=== PATIENT | female | born 1980 | race Caucasian/White ===

== ENCOUNTER 2017-06-11 13:15 | Emergency (ER) | payer MEDICAID ==
--- NOTE | 2017-06-11 14:13 | ER Document Report ---
ED Medical Screen (RME) - General Chief Complaint: Dizziness Stated Complaint: DIZZINESS Time Seen by Provider: 06/11/17 14:04 Notes: RAPID MEDICAL EVALUATION DISCLOSURE I have seen this patient as part of a Rapid Medical Evaluation and, if applicable, placed any initially appropriate orders. The patient will be seen and fully evaluated, including a full history and physical exam, by a provider ( in Main ED or Fast Track) when a room becomes available. 37-year-old female approximately 3-4 months (per patient calculated by her last menstrual period back around March) here with complaints of left lower quadrant abdominal pain for the last 2 weeks, intermittent, nonradiating, worse with movement but is here today because she started to have lightheadedness yesterday evening that is progressively worsening. The lightheadedness is worse with standing. She has had some nausea but no vomiting throughout her . She has had some vaginal discharge that is worse today but no vaginal bleeding. EXAM Clear to auscultation bilaterally Regular rate and rhythm Mild left lower quadrant tenderness to palpation TRAVEL OUTSIDE OF THE [place] IN LAST 30 DAYS: No - Related Data Allergies/Adverse Reactions: No Known Allergies Allergy (Verified 06/11/17 13:56) Past Medical History - Social History Chew tobacco use (# tins/day): No Frequency of alcohol use: None Drug Abuse: None Renal/ Medical History: Denies: Hx Peritoneal Dialysis - Immunizations Hx Diphtheria, Pertussis, Tetanus Vaccination: Yes Physical Exam - Vital signs Vitals: Temp Pulse Resp BP Pulse Ox 98.7 F 89 18 120/72 98 06/11/17 13:29 06/11/17 13:29 06/11/17 13:06/11/17 13:06/11/17 13:29 Course - Vital Signs Vital signs: Temp Pulse Resp BP Pulse Ox 98.7 F 89 18 120/72 98 06/11/17 13:29 06/11/17 13:29 06/11/17 13:29 06/11/17 13:29 06/11/17 13:29 Doctor's Discharge - Discharge Referrals: TIFFANI MURPHY MD [Primary Care Provider] - Follow up as needed
[2017-06-11 14:51] LABS: ABSOLUTE LYMPHOCYTES (AUTO) 2.2 10^3/uL (0.5-4.7); ABSOLUTE MONOCYTES (AUTO) 0.3 10^3/uL (0.1-1.4); ABSOLUTE NEUT (AUTO) 9.2 10^3/uL (1.7-8.2); BASOPHILS % (AUTO) 0.3 % (0-2); EOSINOPHILS % (AUTO) 0.2 % (0-6); HEMATOCRIT 39.3 % (36.0-47.0); HEMOGLOBIN 13.4 g/dL (12.0-15.5); LYMPHOCYTES % (AUTO) 18.3 % (13-45); MEAN CORPUSCULAR HEMOGLOBIN 29.8 pg (27.0-33.4); MEAN CORPUSCULAR HGB CONC 34.2 g/dL (32.0-36.0); MEAN CORPUSCULAR VOLUME 87 fl (80-97); MONOCYTES % (AUTO) 2.9 % (3-13); PLATELET COUNT 256 10^3/uL (150-450); RED BLOOD COUNT 4.52 10^6/uL (3.72-5.28); RED CELL DISTRIBUTION WIDTH 14.7 % (11.5-14.0); SEGMENTED NEUTROPHILS % (AUTO) 78.3 % (42-78); TOTAL CELLS COUNTED % (AUTO) 100 %; WHITE BLOOD COUNT 11.7 10^3/uL (4.0-10.5)
[2017-06-11 15:18] LABS: ANION GAP 13 (5-19); BLOOD UREA NITROGEN 5 mg/dL (7-20); CALCIUM 9.5 mg/dL (8.4-10.2); CARBON DIOXIDE 26 mmol/L (22-30); CHLORIDE 103 mmol/L (98-107); GLUCOSE 85 mg/dL (75-110); PHOSPHORUS 4.2 mg/dL (2.5-4.5); POTASSIUM 3.9 mmol/L (3.6-5.0); SODIUM 141.5 mmol/L (137-145)
[2017-06-11 15:45] LABS: APPEARANCE,URINE CLEAR; BILIRUBIN,URINE NEGATIVE (NEGATIVE); COLOR,URINE YELLOW; GLUCOSE, URINE NEGATIVE (NEGATIVE); KETONES,URINE NEGATIVE (NEGATIVE); LEUKOCYTE ESTERASE,URINE TRACE (NEGATIVE); NITRITE,URINE NEGATIVE (NEGATIVE); PROTEIN,URINE NEGATIVE (NEGATIVE); UROBILINOGEN,URINE NEGATIVE mg/dL (<2.0)
--- NOTE | 2017-06-11 17:17 | RADIOLOGY REPORT (SQ) ---
EXAM DESCRIPTION: U/S OB TRANSVAGINAL W/O DOP COMPLETED DATE/TIME: 06/11/2017 4:28 pm REASON FOR STUDY: 3-4 months preg; LLQ pain; eval miscarriage ectopi COMPARISON: None. TECHNIQUE: Transabdominal static and realtime grayscale images acquired of the pelvis. Additional se lected spectral and color Doppler images recorded. All images stored on PACs. [facility] CLINICAL DATES: 01/05/2018 LIMITATIONS: None. FINDINGS: FETUS: Living intrauterine . ULTRASOUND EGA: 12 weeks ULTRASOUND FELISA: 12/24/2017 CRL: Not evaluated FHR: 144 beats per minute. SUBCHORIONIC BLEED: No SIZE OF BLEED: Not applicable. UTERUS: No masses. No anomalies. CERVICAL LENGTH: 3 cm Closed. RIGHT ADNEXA: Normal ovary with normal vascular flow. No adnexal free fluid. There is a questionable right ovarian cyst measuring 2.6 x 2.7 x 2.7 cm LEFT ADNEXA: Left ovary was not visualized. No adnexal free fluid. No adnexal masses. FREE FLUID: None. OTHER: No other significant finding. IMPRESSION: LIVING INTRAUTERINE . EGA 12 weeks Trimester of : First - 0 to 13 weeks. TECHNICAL DOCUMENTATION: JOB ID: [id number] [employer]- All Rights Reserved Reading location - IP/workstation name: [email or web address]
[2017-06-11 17:23] VITALS: BP 131/76
--- NOTE | 2017-06-11 17:34 | ER Document Report ---
ED General - General Chief Complaint: Dizziness Stated Complaint: DIZZINESS Time Seen by Provider: 06/11/17 14:04 TRAVEL OUTSIDE OF THE [place] IN LAST 30 DAYS: No - Related Data Allergies/Adverse Reactions: No Known Allergies Allergy (Verified 06/11/17 13:56) Past Medical History - Social History Smoking Status: Former Smoker Chew tobacco use (# tins/day): No Frequency of alcohol use: None Drug Abuse: None Family History: Reviewed & Not Pertinent Patient has suicidal ideation: No Patient has homicidal ideation: No Renal/ Medical History: Denies: Hx Peritoneal Dialysis - Immunizations Hx Diphtheria, Pertussis, Tetanus Vaccination: Yes Physical Exam - Vital signs Vitals: Temp Pulse Resp BP Pulse Ox 98.7 F 89 18 120/72 98 06/11/17 13:29 06/11/17 13:29 06/11/17 13:29 06/11/17 13:29 06/11/17 13:29 Course - Vital Signs Vital signs: Temp Pulse Resp BP Pulse Ox 98.2 F 89 18 131/76 H 100 06/11/17 17:22 06/11/17 17:22 06/11/17 17:22 06/11/17 17:22 06/11/17 17:22 - Laboratory Result Diagrams: 06/11/17 14:30 06/11/17 14:30 Laboratory results interpreted by me: 06/11/17 06/11/17 06/11/17 14:30 14:30 15:20 WBC 11.7 H RDW 14.7 H Seg Neutrophils % 78.3 H Monocytes % 2.9 L Absolute Neutrophils 9.2 H BUN 5 L Creatinine 0.41 L Beta HCG, Quant 87966.00 H Ur Leukocyte Esterase TRACE H Discharge - Discharge Clinical Impression: Dizziness Abdominal pain during Qualifiers: Trimester: first trimester Qualified Code(s): O26.891 - Other specified related conditions, first trimester; R10.9 - Unspecified abdominal pain; R10.9 - Unspecified abdominal pain Condition: Good Disposition: HOME, SELF-CARE Instructions: Dehydration ([facility]), Dizziness ([facility]), Pelvic Pain in and Round Ligament Pain ([facility]), Ob-Scale Balancer Doctors Additional Instructions: For nausea and vomiting during I recomment: Start with 10-12.5 mg of pyridoxine (vitamin B6) three times a day for 2 days. If not fully effective, Increase to 12.5 mg of pyridoxine four times a day for 2 days. If not fully effective, Increase to 25 mg of pyridoxine three times a day for 2 days. If not fully effective, Continue 25 mg pyridoxine 3 times a day, and add 12.5 mg of doxylamine before bedtime each day for 2 days. If not fully effective, Continue 25 mg pyridoxine 3 times a day, and take 12.5 mg of doxylamine twice a day. If not fully effective, Continue 25 mg pyridoxine 3 times a day, and take 12.5 mg of doxylamine three times a day. If not fully effective, Continue 25 mg pyridoxine 3 times a day, and 12.5 mg of doxylamine 3 times a day , while adding Emetrol, one to two tablespoons (15-30 cc) taken once or twice a day as needed. (Emetrol is an [id number] mixture of sugar syrups and phosphoric acid [phosphorylated carbohydrate solution]) that acts by soothing the actual wall of the gastrointestinal tract). If not fully effective, Consult with your doctor. Please take vitamins. Follow-up with your LIME FILTER OPERATOR I believe that her dizziness today is due mostly to dehydration. I would highly recommend that you continue to drink plenty of fluids to stay hydrated. Take vitamins as prescribed. Return to the ER if symptoms worsen. Prescriptions: Metoclopramide HCl [Reglan] 5 mg PO Q6 #30 tablet Prenat 115/Iron Fum/Folic/Dss [ 19 Tablet] 1 each PO DAILY #30 tablet Referrals: TIFFANI MURPHY MD [Primary Care Provider] - Follow up as needed
--- NOTE | 2017-06-11 19:09 | ER Document Report ---
ED General - General Chief Complaint: Dizziness Stated Complaint: DIZZINESS Time Seen by Provider: 06/11/17 14:04 TRAVEL OUTSIDE OF THE [place] IN LAST 30 DAYS: No - HPI Patient complains to provider of: Dizziness Notes: Patient coming in for evaluation of dizziness. Patient is currently . Patient is approximate 3-4 months by her last menstrual cycle. Patient is a . Patient states dizziness exacerbated with movement sitting from standing. Patient also in triage is noted to triage provider that she had slight vaginal discharge. Patient states to myself that this is not abnormal for her and does not want any further examination. Patient denies any recent travel denies any fevers chills nausea vomiting diarrhea. Patient is currently upon my evaluation. Patient also states slight abdominal pain left lower quadrant. No diarrhea pain is constant. No trauma - Related Data Allergies/Adverse Reactions: No Known Allergies Allergy (Verified 06/11/17 13:56) Past Medical History - Social History Smoking Status: Former Smoker Chew tobacco use (# tins/day): No Frequency of alcohol use: None Drug Abuse: None Family History: Reviewed & Not Pertinent Patient has suicidal ideation: No Patient has homicidal ideation: No Renal/ Medical History: Denies: Hx Peritoneal Dialysis - Immunizations Hx Diphtheria, Pertussis, Tetanus Vaccination: Yes Review of Systems - Review of Systems Constitutional: Other - Dizziness EENT: No symptoms reported Cardiovascular: No symptoms reported Respiratory: No symptoms reported Gastrointestinal: No symptoms reported Genitourinary: No symptoms reported Female Genitourinary: No symptoms reported Musculoskeletal: No symptoms reported Skin: No symptoms reported Hematologic/Lymphatic: No symptoms reported Neurological/Psychological: No symptoms reported Physical Exam - Vital signs Vitals: Temp Pulse Resp BP Pulse Ox 98.7 F 89 18 120/72 98 06/11/17 13:29 06/11/17 13:29 06/11/17 13:29 06/11/17 13:29 06/11/17 13:29 Interpretation: Normal - General General appearance: Appears well, Alert - HEENT Head: Normocephalic, Atraumatic Eyes: Normal Pupils: PERRL - Respiratory Respiratory status: No respiratory distress Chest status: Nontender Breath sounds: Normal Chest palpation: Normal - Cardiovascular Rhythm: Regular Heart sounds: Normal auscultation Murmur: No - Abdominal Inspection: Normal Distension: No distension Bowel sounds: Normal Tenderness: Nontender Organomegaly: No organomegaly - Back Back: Normal, Nontender - Extremities General upper extremity: Normal inspection, Nontender, Normal color, Normal ROM , Normal temperature General lower extremity: Normal inspection, Nontender, Normal color, Normal ROM , Normal temperature, Normal weight bearing. No: Ruben's sign - Neurological Neuro grossly intact: Yes Cognition: Normal Orientation: AAOx4 [place] Coma Scale Eye Opening: Spontaneous [place] Coma Scale Verbal: Oriented [place] Coma Scale Motor: Obeys Commands [place] Coma Scale Total: 15 Speech: Normal Motor strength normal: LUE, RUE, LLE, RLE Sensory: Normal - Psychological Associated symptoms: Normal affect, Normal mood - Skin Skin Temperature: Warm Skin Moisture: Dry Skin Color: Normal Course - Re-evaluation Re-evalutation: 06/11/17 19:08 Ultrasound did not show any significant pathology. More likely patient's abdominal pain is due to round ligament pain. Patient refusing pelvic examination. I did review the ultrasound results with the patient otherwise no significant pathology seen. Dizziness more likely due to slight orthostasis patient was encouraged to drink plenty of fluids patient was given a prescription for vitamins and Reglan. Patient will be discharged home follow-up primary care physician. - Vital Signs Vital signs: Temp Pulse Resp BP Pulse Ox 98.2 F 89 18 131/76 H 100 06/11/17 17:22 06/11/17 17:22 06/11/17 17:22 06/11/17 17:22 06/11/17 17:22 - Laboratory Result Diagrams: 06/11/17 14:30 06/11/17 14:30 Laboratory results interpreted by me: 06/11/17 06/11/17 06/11/17 14:30 14:30 15:20 WBC 11.7 H RDW 14.7 H Seg Neutrophils % 78.3 H Monocytes % 2.9 L Absolute Neutrophils 9.2 H BUN 5 L Creatinine 0.41 L Beta HCG, Quant 94316.00 H Ur Leukocyte Esterase TRACE H Discharge - Discharge Clinical Impression: Dizziness Abdominal pain during Qualifiers: Trimester: first trimester Qualified Code(s): O26.891 - Other specified related conditions, first trimester Condition: Good Disposition: HOME, SELF-CARE Instructions: Dehydration ([facility]), Dizziness ([facility]), Ob-Bottle Washer Machine Doctors, Pelvic Pain in and Round Ligament Pain ([facility]) Additional Instructions: For nausea and vomiting during I recomment: Start with 10-12.5 mg of pyridoxine (vitamin B6) three times a day for 2 days. If not fully effective, Increase to 12.5 mg of pyridoxine four times a day for 2 days. If not fully effective, Increase to 25 mg of pyridoxine three times a day for 2 days. If not fully effective, Continue 25 mg pyridoxine 3 times a day, and add 12.5 mg of doxylamine before bedtime each day for 2 days. If not fully effective, Continue 25 mg pyridoxine 3 times a day, and take 12.5 mg of doxylamine twice a day. If not fully effective, Continue 25 mg pyridoxine 3 times a day, and take 12.5 mg of doxylamine three times a day. If not fully effective, Continue 25 mg pyridoxine 3 times a day, and 12.5 mg of doxylamine 3 times a day , while adding Emetrol, one to two tablespoons (15-30 cc) taken once or twice a day as needed. (Emetrol is an tpct-anr-brrwexi mixture of sugar syrups and phosphoric acid [phosphorylated carbohydrate solution]) that acts by soothing the actual wall of the gastrointestinal tract). If not fully effective, Consult with your doctor. Please take vitamins. Follow-up with your ADMINISTRATOR PESTICIDE I believe that her dizziness today is due mostly to dehydration. I would highly recommend that you continue to drink plenty of fluids to stay hydrated. Take vitamins as prescribed. Return to the ER if symptoms worsen. Prescriptions: Metoclopramide HCl [Reglan] 5 mg PO Q6 #30 tablet Prenat 115/Iron Fum/Folic/Dss [ 19 Tablet] 1 each PO DAILY #30 tablet Forms: Return to Work Referrals: TIFFANI MURPHY MD [Primary Care Provider] - Follow up as needed
== END 2017-06-11 17:37 | disposition home or self-care (01) ==
LOC: ER 13:15
DX: O26.91 Pregnancy related conditions, unspecified, first trimester (principal); R42 Dizziness and giddiness; R10.2 Pelvic and perineal pain
CPT/HCPCS: 36415; 76817; 80048; 81001; 83735; 84100; 84702; 85025; 86900; 86901; 99284

== ENCOUNTER 2017-07-31 15:31 | Emergency (ER) | payer MEDICAID ==
[2017-07-31 16:14] LABS: APPEARANCE,URINE CLEAR; BILIRUBIN,URINE NEGATIVE (NEGATIVE); COLOR,URINE YELLOW; GLUCOSE, URINE NEGATIVE (NEGATIVE); KETONES,URINE NEGATIVE (NEGATIVE); LEUKOCYTE ESTERASE,URINE NEGATIVE (NEGATIVE); NITRITE,URINE NEGATIVE (NEGATIVE); PROTEIN,URINE NEGATIVE (NEGATIVE); URINE SPECIFIC GRAVITY 1.008; UROBILINOGEN,URINE NEGATIVE mg/dL (<2.0)
--- NOTE | 2017-07-31 16:50 | ER Document Report ---
ED Medical Screen (RME) - General Chief Complaint: Vaginal Discharge Stated Complaint: VAGINAL DISCHARGE <20 WEEKS Time Seen by Provider: 07/31/17 15:58 Mode of Arrival: Ambulatory Information source: Patient Notes: 37-year-old female 6 para 6 who notes she is 20 weeks presents with what she states is brown vaginal discharge only when she urinates. Patient denies any significant abdominal pain fevers or chills I have greeted and performed a rapid initial assessment of this patient. A comprehensive ED assessment and evaluation of the patient, analysis of test results and completion of the medical decision making process will be conducted by additional ED providers. PHYSICAL EXAMINATION: GENERAL: Well-appearing, well-nourished and in no acute distress. HEAD: Atraumatic, normocephalic. EYES: Pupils equal round extraocular movements intact, conjunctiva are normal. ENT: Nares patent NECK: Normal range of motion LUNGS: No respiratory distress Musculoskeletal: Normal range of motion NEUROLOGICAL: Normal speech, normal gait. PSYCH: Normal mood, normal affect. SKIN: Warm, Dry, normal turgor, no rashes or lesions noted. TRAVEL OUTSIDE OF THE [place] IN LAST 30 DAYS: No - Related Data Allergies/Adverse Reactions: No Known Allergies Allergy (Verified 07/31/17 16:36) Past Medical History - General Last Menstrual Period: 20 wk pg - Social History Chew tobacco use (# tins/day): No Frequency of alcohol use: None Drug Abuse: None Renal/ Medical History: Denies: Hx Peritoneal Dialysis - Immunizations Hx Diphtheria, Pertussis, Tetanus Vaccination: Yes Physical Exam - Vital signs Vitals: Temp Pulse Resp BP Pulse Ox 98.9 F 94 16 131/75 H 98 07/31/17 15:36 07/31/17 15:36 07/31/17 15:36 07/31/17 15:36 07/31/17 15:36 Course - Vital Signs Vital signs: Temp Pulse Resp BP Pulse Ox 98.9 F 94 16 131/75 H 98 07/31/17 15:36 07/31/17 15:36 07/31/17 15:36 07/31/17 15:36 07/31/17 15:36 Doctor's Discharge - Discharge Referrals: TIFFANI MURPHY MD [Primary Care Provider] - Follow up as needed
--- NOTE | 2017-07-31 17:13 | ER Document Report ---
ED GI/ - General Chief Complaint: Vaginal Discharge Stated Complaint: VAGINAL DISCHARGE <20 WEEKS Time Seen by Provider: 07/31/17 15:58 Mode of Arrival: Ambulatory Notes: The patient is a 20 weeks 37-year-old who presents with a small amount of blood when she urinates and brown discharge. He was also having sharp lower abdominal pain, but denies fevers, flank pain, nausea, vomiting or heavy vaginal bleeding. TRAVEL OUTSIDE OF THE [place] IN LAST 30 DAYS: No - Related Data Allergies/Adverse Reactions: No Known Allergies Allergy (Verified 07/31/17 16:36) Past Medical History - General Information source: Patient Last Menstrual Period: 20 wk pg - Social History Smoking Status: Former Smoker Chew tobacco use (# tins/day): No Frequency of alcohol use: None Drug Abuse: None Family History: Reviewed & Not Pertinent Patient has suicidal ideation: No Patient has homicidal ideation: No Renal/ Medical History: Denies: Hx Peritoneal Dialysis - Immunizations Hx Diphtheria, Pertussis, Tetanus Vaccination: Yes Review of Systems - Review of Systems Notes: REVIEW OF SYSTEMS: CONSTITUTIONAL: -fevers, -chills EENT: -eye pain, -difficulty swallowing, -nasal congestion CARDIOVASCULAR: -chest pain, -syncope. RESPIRATORY: -cough, -SOB GASTROINTESTINAL: -abdominal pain, -nausea, -vomiting, -diarrhea GENITOURINARY: -dysuria, -hematuria, +vaginal discharge MUSCULOSKELETAL: -back pain, -neck pain SKIN: -rash or skin lesions. HEMATOLOGIC: -easy bruising or bleeding. LYMPHATIC: -swollen, enlarged glands. NEUROLOGICAL: -altered mental status or loss of consciousness, -headache, - neurologic symptoms PSYCHIATRIC: -anxiety, -depression. ALL OTHER SYSTEMS REVIEWED AND NEGATIVE. Physical Exam - Vital signs Vitals: Temp Pulse Resp BP Pulse Ox 98.9 F 94 16 131/75 H 98 07/31/17 15:36 07/31/17 15:36 07/31/17 15:36 07/31/17 15:36 07/31/17 15:36 - Notes Notes: PHYSICAL EXAMINATION: GENERAL: Well-appearing, well-nourished and in no acute distress. HEAD: Atraumatic, normocephalic. EYES: Pupils equal round and reactive to light, extraocular movements intact, sclera anicteric, conjunctiva are normal. ENT: nares patent, oropharynx clear without exudates. Moist mucous membranes. NECK: Normal range of motion, supple without lymphadenopathy LUNGS: Breath sounds clear to auscultation bilaterally and equal. No wheezes rales or rhonchi. HEART: Regular rate and rhythm without murmurs ABDOMEN: Soft, nontender, normoactive bowel sounds. No guarding, no rebound. No masses appreciated. (Chaperoned by PCT): Small amount of yellow discharge. Closed cervix. No bleeding. Non-tender abdomen and non-tender adnexa. EXTREMITIES: Normal range of motion, no pitting or edema. No cyanosis. NEUROLOGICAL: Cranial nerves grossly intact. Normal speech, normal gait. Normal sensory and motor exams. PSYCH: Normal mood, normal affect. SKIN: Warm, Dry, normal turgor, no rashes or lesions noted. Course - Re-evaluation Re-evalutation: Patient appears well. Her ultrasound shows a normal fetus and pelvic exam reveals a non-tender uterus with a closed cervix and a small amount of yellow discharge. Her urinalysis does not show any evidence of a urinary tract infection, gonorrhea and Chlamydia are both negative and her wet mount did not show any abnormalities. No active vaginal bleeding on exam. Instructed her to follow-up with her OB for further evaluation and treatment. - Vital Signs Vital signs: Temp Pulse Resp BP Pulse Ox 98.7 F 80 17 109/61 99 07/31/17 19:17 07/31/17 19:17 07/31/17 19:17 07/31/17 19:17 07/31/17 19:17 Discharge - Discharge Clinical Impression: Vaginal discharge during in second trimester Condition: Stable Disposition: HOME, SELF-CARE Additional Instructions: Follow-up with your OB for further evaluation and treatment. Your urinalysis and exam did not show any evidence of bleeding or infection. Forms: Elevated Blood Pressure Referrals: TIFFANI MURPHY MD [Primary Care Provider] - Follow up as needed
[2017-07-31 17:44] LABS: CHLAM PCR NOT DETECTED (NOT DETECT); GON PCR NOT DETECTED (NOT DETECT)
--- NOTE | 2017-07-31 17:51 | RADIOLOGY REPORT (SQ) ---
EXAM DESCRIPTION: U/S OB 14+ TRNABD 1GES W/O DOP COMPLETED DATE/TIME: 07/31/2017 5:40 pm REASON FOR STUDY: 20 weeks COMPARISON: 06/11/2017. TECHNIQUE: Static and Dynamic grayscale imaging performed of gravid uterus using transabdominal appr oach. Additional selected color Doppler and spectral images recorded. All stored on PACS. LIMITATIONS: None. FINDINGS: EGA: 19 week 0 day. FELISA: 12/25/2017. EFW: 270 Grams PERCENTILE: Not applicable. Fetus less than or equal to 20 weeks gestation. HEIDY: Adequate amount. PLACENTA: Anterior. Grade: I PRESENTATION: Breech. ANATOMY: HEART RATE: 141 beats per minute. FOUR CHAMBER HEART: Visualized. THREE VESSEL CORD: Yes. CORD INSERTION: Visualized. KIDNEYS AND BLADDER: Visualized. Appear normal. STOMACH: Visualized. Appears normal. SPINE: Normal as visualized. BRAIN AND LATERAL VENTRICLES: Visualized. Appear normal. OTHER: No other significant finding. MATERNAL ADNEXA: Maternal ovaries not visualized. CERVICAL LENGTH: 3.8 cm. Closed. OTHER: No other significant finding. IMPRESSION: LIVING INTRAUTERINE . ESTIMATED GESTATIONAL AGE 19 WEEKS. NO VISUALIZED ANOMALIES. Trimester of : Second trimester - 13 weeks 1 day to 27 weeks 6 days. TECHNICAL DOCUMENTATION: JOB ID: [id number] [employer]- All Rights Reserved Reading location - IP/workstation name: [email or web address]
[2017-07-31 18:47] LABS: T.VAGINALIS (WET MOUNT) NO TRICHOMONAS SEEN; WBCS (WET MOUNT) NO WBCS SEEN; YEAST (WET MOUNT) NO YEAST SEEN
[2017-07-31 19:18] VITALS: BP 109/61
== END 2017-07-31 19:18 | disposition home or self-care (01) ==
LOC: ER 15:31
DX: O26.892 Other specified pregnancy related conditions, second trimester (principal); N89.8 Other specified noninflammatory disorders of vagina; R10.30 Lower abdominal pain, unspecified; Z3A.20 20 weeks gestation of pregnancy; Z87.891 Personal history of nicotine dependence
CPT/HCPCS: 76805; 81001; 87210; 87491; 87591; 99284

== ENCOUNTER 2017-11-10 15:57 | Outpatient (CLI) | payer MEDICAID ==
--- NOTE | 2017-11-10 16:50 | Non Stress Test Report ---
Non Stress Test Datetime Report Generated by CPN: 11/10/2017 16:49 DEMOGRAPHIC EGA NST: 33.6 INDICATION Indication for Study: Ordered by Provider; Other Indication for Study (NST) Other: polyhydramnious MONITORING Monitor Explained: Monitor Explained; Test Explained; Patient Verbalized Understanding Time on Monitor: 11/10/2017 16:11 Time off Monitor: 11/10/2017 16:36 NST Duration: 25 NST INTERVENTIONS NST Interventions: PO Hydration; Reposition Patient Physician Notified NST: N ARCEO, CNM BABY A: [id number] BABY A Movement : Present Contraction Frequency : denies FHR Baseline : 125 Accelerations : 15X15 Decelerations : None Variability : Moderate 6-25bpm NST Review: Meets Criteria for Reactive NST NST Review and Verified By : LENORA DEAN Results: Reactive NST REPORT Report Trigger: Send Report
== END 2017-11-10 16:42 | disposition home or self-care (01) ==
LOC: LC 15:57
PROVIDERS: ATTEND Obstetrics & Gynecology
PROC: 4A1HXCZ Monitoring of Products of Conception, Cardiac Rate, External Approach (ICD-10-PCS; principal; 2017-11-10)
DX: O40.3XX0 Polyhydramnios, third trimester, not applicable or unspecified (principal); O09.523 Supervision of elderly multigravida, third trimester; Z3A.33 33 weeks gestation of pregnancy
CPT/HCPCS: 59025

== ENCOUNTER 2017-11-20 15:31 | Outpatient (CLI) | payer MEDICAID ==
--- NOTE | 2017-11-20 17:05 | Non Stress Test Report ---
Non Stress Test Datetime Report Generated by CPN: 11/20/2017 17:04 DEMOGRAPHIC EGA NST: 35.2 INDICATION Indication for Study: Ordered by Provider Indication for Study (NST) Other: sent from the office MONITORING Monitor Explained: Monitor Explained; Test Explained; Patient Verbalized Understanding Time on Monitor: 11/20/2017 15:50 Time off Monitor: 11/20/2017 16:34 NST Duration: 44 NST INTERVENTIONS NST Interventions: PO Hydration; Reposition Patient Physician Notified NST: Dr Weiner BABY A: [id number] BABY A Movement : Present Contraction Frequency : irr FHR Baseline : 130 Accelerations : 15X15 Decelerations : None Variability : Moderate 6-25bpm NST Review: Meets Criteria for Reactive NST NST Review and Verified By : Mayte COOLEY NST Results: Reactive NST REPORT Report Trigger: Send Report
== END 2017-11-20 17:10 | disposition home or self-care (01) ==
LOC: LC 15:31
PROVIDERS: ATTEND Student in an Organized Health Care Education/Training Program
PROC: 4A1HXCZ Monitoring of Products of Conception, Cardiac Rate, External Approach (ICD-10-PCS; principal; 2017-11-20)
DX: Z34.83 Encounter for supervision of other normal pregnancy, third trimester (principal)
CPT/HCPCS: 59025

== ENCOUNTER 2017-12-04 14:59 | Outpatient (CLI) | payer MEDICAID | END 2017-12-04 15:52 | disposition home or self-care (01) | LOC: LC 14:59 | PROVIDERS: ATTEND Obstetrics & Gynecology Gynecology | PROC: 4A1HXCZ Monitoring of Products of Conception, Cardiac Rate, External Approach (ICD-10-PCS; principal; 2017-12-04) | DX: Z34.93 Encounter for supervision of normal pregnancy, unspecified, third trimester (principal) | CPT/HCPCS: 59025 ==

== ENCOUNTER 2017-12-18 06:59 | Inpatient (IN) | payer MEDICAID ==
[2017-12-18] MEDS ORDERED: RINGERS SOLUTION,LACTATED 300 ML IV ONE (07:31)
[2017-12-18] MEDS: RINGERS SOLUTION,LACTATED 1,000 ML IV PRN (08:21)
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
[2017-12-18 08:35] LABS: APPEARANCE,URINE SLIGHTLY-CLOUDY; BILIRUBIN,URINE NEGATIVE (NEGATIVE); COLOR,URINE YELLOW; GLUCOSE, URINE NEGATIVE (NEGATIVE); KETONES,URINE NEGATIVE (NEGATIVE); LEUKOCYTE ESTERASE,URINE NEGATIVE (NEGATIVE); NITRITE,URINE NEGATIVE (NEGATIVE); PROTEIN,URINE NEGATIVE (NEGATIVE); UROBILINOGEN,URINE NEGATIVE mg/dL (<2.0)
[2017-12-18] MEDS ORDERED: MAG HYDROX/AL HYDROX/SIMETH SUSP 30 ML UDCUP ONE (08:43)
[2017-12-18] MEDS ORDERED: OXYTOCIN/NORMAL SALINE 20 UNIT/1,000 ML RTUINJ ONE (08:44)
[2017-12-18 08:45] LABS: ABSOLUTE EOSINOPHILS # (AUTO) 0.1 10^3/uL (0.0-0.6); ABSOLUTE LYMPHOCYTES (AUTO) 2.1 10^3/uL (0.5-4.7); ABSOLUTE MONOCYTES (AUTO) 0.4 10^3/uL (0.1-1.4); ABSOLUTE NEUT (AUTO) 7.8 10^3/uL (1.7-8.2); BASOPHILS % (AUTO) 0.2 % (0-2); EOSINOPHILS % (AUTO) 0.7 % (0-6); HEMATOCRIT 35.7 % (36.0-47.0); HEMOGLOBIN 12.3 g/dL (12.0-15.5); LYMPHOCYTES % (AUTO) 20.5 % (13-45); MEAN CORPUSCULAR HEMOGLOBIN 28.6 pg (27.0-33.4); MEAN CORPUSCULAR HGB CONC 34.4 g/dL (32.0-36.0); MEAN CORPUSCULAR VOLUME 83 fl (80-97); MONOCYTES % (AUTO) 4.3 % (3-13); PLATELET COUNT 152 10^3/uL (150-450); RED CELL DISTRIBUTION WIDTH 17.2 % (11.5-14.0); SEGMENTED NEUTROPHILS % (AUTO) 74.3 % (42-78); TOTAL CELLS COUNTED % (AUTO) 100 %; WHITE BLOOD COUNT 10.4 10^3/uL (4.0-10.5)
[2017-12-18 09:33] LABS: URINE AMPHETAMINES SCREEN NEGATIVE; URINE BARBITURATES SCREEN NEGATIVE; URINE BENZODIAZEPINES SCREEN NEGATIVE; URINE COCAINE SCREEN NEGATIVE; URINE MARIJUANA (THC) SCREEN NEGATIVE; URINE METHADONE SCREEN NEGATIVE; URINE PHENCYCLIDINE SCREEN NEGATIVE
[2017-12-18] MEDS ORDERED: OXYTOCIN/NORMAL SALINE 20 UNIT/1,000 ML RTUINJ IV PRN (09:55)
[2017-12-18] MEDS ORDERED: MAG HYDROX/AL HYDROX/SIMETH SUSP 30 ML UDCUP PO ONE (10:30)
--- NOTE | 2017-12-18 15:33 | L&D Progress Notes ---
PROGRESS NOTES Datetime Report Generated by CPN: 12/18/2017 15:33 PROGRESS NOTE Impression: Reassuring Heart Rate Procedures- Other: IOL for unstable lie and polyhydramnios Plan: Continue Present Management Plan Other: Pitocin infusing Vital Signs : Reviewed; Within Normal Limits Comment: Pt remains comfortable, Pitocin infusing, Dr Weiner plans to AROM and leak pt down once some cervical change is made. Position changes encouraged. GBS negative VAGINAL EXAM Contractions: occassional, mild MEMBRANES Membranes: Intact Membranes: Intact FETUS A FHR - Baseline: 125 Monitoring: External US Variability: Moderate 6-25bpm Accelerations: Absent Decelerations: None SIGNATURE SIGNATURE: ,[id number];,[id number];,[id number] SIGNATURE: ,[id number];,[id number] SIGNATURE: ,[id number] SIGNATURE: ,[id number] SIGNATURE: ,[id number] Assignment: Viviana Weiner MD Signature: with User ID: [email or web address] : with User ID: [email or web address]
[2017-12-18] MEDS ORDERED: NALBUPHINE HCL INJ 10 MG/1 ML AMPULE INJ ONE (20:08)
[2017-12-18] MEDS ORDERED: NALBUPHINE HCL INJ 10 MG/1 ML AMPULE ONE (20:10)
[2017-12-19] MEDS: RINGERS SOLUTION,LACTATED 1,000 ML IV PRN (00:10)
--- NOTE | 2017-12-19 00:19 | L&D Progress Notes ---
PROGRESS NOTES Datetime Report Generated by CPN: 12/19/2017 00:18 PROGRESS NOTE Impression: Normal Progression of Labor Procedures: Sterile Vag Exam Plan: Continue Present Management; Induction; Cervical Ripening Informed Consent Obtained: Vaginal Delivery; Induction of Labor; Risks, Benefits and Alternatives Discussed Vital Signs : Reviewed Comment: US confirmed Vertex again. Fluid continues to be clear. Regular ctx and Cooks catheter placed to help with cervical ripening and moving cervix to more anterior position. Pt reports that she will desires epidural at some point for delivery. COntinue with IOL. Comment: progress not written at 0837 has the wrong time noted. It was actually written at 1530. VAGINAL EXAM Dilatation: 3 Effacement: 70 Station: -3 FETUS A FHR - Baseline: 120 Monitoring: External US Variability: Minimal - Undetectable to <=5bpm Accelerations: 15X15 Decelerations: None FETUS C SIGNATURE: 13,[id number];14,[id number];10,[id number] Signature: with User ID: [email or web address]
[2017-12-19] MEDS ORDERED: FENTANYL/BUPIVACAINE/NS/PF 300 MCG/150 ML RTUINJ EPI ONE (01:36)
[2017-12-19] MEDS ORDERED: EPHEDRINE SULFATE INJ 50 MG/1 ML AMPULE ONE (01:36)
[2017-12-19] MEDS ORDERED: BUPIVACAINE HCL 0.5 % INJ/PF 30 ML SDV ONE (01:37)
[2017-12-19] MEDS ORDERED: PHENYLEPHRINE HCL INJ/PF 10 MG/1 ML SDV ONE (01:37)
[2017-12-19] MEDS ORDERED: FENTANYL CITRATE INJ/PF 100 MCG/2 ML AMPUL ONE (01:38)
[2017-12-19] MEDS ORDERED: MISOPROSTOL 0.2 MG TABLET ONE (08:54)
[2017-12-19] MEDS ORDERED: OXYTOCIN/NORMAL SALINE 20 UNIT/1,000 ML RTUINJ ONE (08:54)
[2017-12-19] MEDS ORDERED: LIDOCAINE 1% INJ-PF (10 MG/ML) 30 ML SDV ONE (08:54)
[2017-12-19] MEDS ORDERED: OXYTOCIN 10 UNIT/ML VIAL ONE (08:54)
[2017-12-19] MEDS ORDERED: IBUPROFEN 800 MG TABLET ONE (13:57)
--- NOTE | 2017-12-19 15:10 | Delivery Summary ---
Del Sum A-C Datetime Report Generated by CPN: 12/19/2017 15:10 DELIVERY PERSONNEL DELIVERY PERSONNEL: [id number] Delivery Doctor:: Dr. Isacc Richards Labor and Delivery Nurse:: Kusum Villasenor RNaba therapist Nurse:: SUSANNAH Coburn Property Valuer/BENCH LOOM WEAVER: Kaela Pedro, IMPLANT POLISHER MATERNAL INFORMATION Delivery Anesthesia: Epidural Estimated Blood Loss (ml): 350 Maternal Complications: None Provider Comments: Normal spontneous vaginal delivery of a female with Apgars 8/9 over an intact perineum. Patient tolerated well. LABOR SUMMARY EDC: 12/23/2017 00:00 No. Babies in Womb: 1 Attempted: No Labor Anesthesia: Epidural LABOR INFORMATION Reason for Induction: Polyhydramnios Onset of Labor: 12/19/2017 07:45 Complete Dilatation: 12/19/2017 12:58 Cervical Ripening Agents: Lucas Balloon Oxytocin: Induction Group B Beta Strep: Negative Antibiotics # of Doses: 0 Antibiotics Time of Last Dose: n/a Name of Antibiotic Given: n/a Steroids Given: None Reason Steroids Not Administered: Not Applicable; Indication MEMBRANES Membranes Rupture Method: Artificial Rupture of Membranes: 12/19/2017 18:45 Length of Rupture (hr): -5.58 Amniotic Fluid Color: Clear Amniotic Fluid Amount: Large Amniotic Fluid Odor: Normal STAGES OF LABOR Stage 1 hr: 5 Stage 1 min: 13 Stage 2 hr: 0 Stage 2 min: 12 Stage 3 hr: 0 Stage 3 min: 17 Total Time in Labor hr: 5 Total Time in Labor min: 42 VAGINAL DELIVERY Episiotomy: None Laceration #1: None Laceration Extension #1: N/A Laceration Repair: Not Applicable Sponge Count Correct: N/A Sharps Count Correct: N/A BABY A INFORMATION Infant Delivery Date/Time: 12/19/2017 13:10 Method of Delivery: Vaginal Born in Route : No : N/A Forceps: N/A Vacuum Extraction: N/A Shoulder Dystocia : No PRESENTATION/POSITION BABY A Presentation: Cephalic Cephalic Presentation: Vertex Vertex Position: Left Occipital Anterior Breech Presentation: N/A PLACENTA INFORMATION BABY A Placenta Delivery Time : 12/19/2017 13:27 Placenta Method of Delivery: Spontaneous Placenta Status: Delivered SCORES BABY A Heart Rate 1 min: >100 bpm Resp Effort 1 min: Good Cry Reflex Irritability 1 min: Cough or Sneeze or Pulls Away Muscle Tone 1 min: Active Motion Color 1 min: Blue/Pale Resuscitation Effort 1 min: Tactile Stimulation SCORE 1 MIN: 8 Heart Rate 5 min: >100 bpm Resp Effort 5 min: Good Cry Reflex Irritability 5 min: Cough or Sneeze or Pulls Away Muscle Tone 5 min: Active Motion Color 5 min: Body Jud, Extremities Blue Resuscitation Effort 5 min: Tactile Stimulation SCORE 5 MIN: 9 INFANT INFORMATION BABY A Gestational Age at Delivery: 39.3 Gestational Status: Full Term- 39- 40.6 Weeks Outcome : Liveborn Condition : Stable Sex: Female IDENTIFICATION BABY A Verification Date/Time: 12/19/2017 13:46 ID Band Number: [id number] Mother's Name Verified: Yes Infant RN Verifying : H. Pamela, RN and D. Camerone, RN WEIGHT/LENGTH BABY A Infant Birthweight (gm): 3630 Weight (lb): 8 Infant Weight (oz): 0 Length (in): 20.50 Length (cm): 52.07 CORD INFORMATION BABY A No. Cord Vessels: 3 Nuchal Cord : N/A Cord Blood Taken: Yes-For Storage (Mom's Blood type +) Suction: None ASSESSMENT BABY A Skin to Skin: Yes BABY B INFORMATION : N/A SIGNATURES Signature: with User ID: [email or web address] : Darren was personally available for consultation and serving as supervising physician for the MLP.
[2017-12-19] MEDS ORDERED: ZOLPIDEM TARTRATE 5 MG TABLET PO PRN (15:12)
[2017-12-19] MEDS ORDERED: PROMETHAZINE HCL 25 MG TABLET PO PRN (15:12)
[2017-12-19] MEDS ORDERED: BENZOCAINE/MENTHOL AEROSOL SPRAY 56 ML TOP PRN (15:12)
[2017-12-19] MEDS ORDERED: DIPHENHYDRAMINE HCL 25 MG CAPSULE PO PRN (15:12)
[2017-12-19] MEDS ORDERED: PSEUDOEPHEDRINE HCL 30 MG TABLET PO PRN (15:12)
[2017-12-19] MEDS ORDERED: MEASLES,MUMPS&RUBELLA VACC/PF 0.5 ML VIAL SUBCUT PRN (15:12)
[2017-12-19] MEDS ORDERED: PROMETHAZINE HCL INJ 25 MG/1 ML VIAL IV PRN (15:12)
[2017-12-19] MEDS ORDERED: PROMETHAZINE HCL 25 MG SUPP.RECT PR PRN (15:12)
[2017-12-19] MEDS ORDERED: ACETAMINOPHEN WITH CODEINE #3 TABLET PO PRN (15:12)
[2017-12-19] MEDS ORDERED: DIPH/PERTUSS(ACELL)/TETANUS VAC/PF 0.5 ML SYR (>=10YO) IM PRN (15:12)
[2017-12-19] MEDS ORDERED: OXYTOCIN/NORMAL SALINE 20 UNIT/1,000 ML RTUINJ IV PRN (15:12)
[2017-12-19] MEDS ORDERED: DIBUCAINE 1% OINTMENT 28 GM TP PRN (15:12)
[2017-12-19] MEDS ORDERED: MAGNESIUM HYDROXIDE SUSP 30 ML UDCUP PO PRN (15:12)
[2017-12-19] MEDS ORDERED: NA PHOS,M-B/NA PHOS,DI-BA (ADULT) 133 ML ENEMA PR PRN (15:12)
[2017-12-19] MEDS ORDERED: ACETAMINOPHEN 650 MG SUPP.RECT PR PRN (15:12)
[2017-12-19] MEDS ORDERED: GLYCERIN/WITCH HAZEL LEAF 1 EACH MED..PAD TP PRN (15:12)
[2017-12-19] MEDS: ACETAMINOPHEN WITH CODEINE #3 TABLET PO PRN ×3 (16:17→23:56)
[2017-12-19] MEDS: DOCUSATE SODIUM 100 MG CAPSULE PO SCH (17:32)
[2017-12-19] MEDS: FERROUS SULFATE 325 MG TABLET PO SCH (17:32)
[2017-12-19] MEDS: FAMOTIDINE 20 MG TABLET PO SCH (21:27)
[2017-12-19] MEDS: IBUPROFEN 800 MG TABLET PO SCH (21:33)
[2017-12-20] MEDS: ACETAMINOPHEN WITH CODEINE #3 TABLET PO PRN ×5 (04:22→21:24)
[2017-12-20] MEDS: IBUPROFEN 800 MG TABLET PO SCH ×3 (05:10→21:24)
[2017-12-20 07:53] LABS: HEMATOCRIT 32.4 % (36.0-47.0); HEMOGLOBIN 10.5 g/dL (12.0-15.5); MEAN CORPUSCULAR HEMOGLOBIN 27.5 pg (27.0-33.4); MEAN CORPUSCULAR HGB CONC 32.5 g/dL (32.0-36.0); MEAN CORPUSCULAR VOLUME 85 fl (80-97); PLATELET COUNT 144 10^3/uL (150-450); RED BLOOD COUNT 3.83 10^6/uL (3.72-5.28); RED CELL DISTRIBUTION WIDTH 17.9 % (11.5-14.0)
[2017-12-20] MEDS: SENNOSIDES/DOCUSATE 8.6-50 MG 1 EACH TABLET PO SCH (09:53)
[2017-12-20] MEDS: FERROUS SULFATE 325 MG TABLET PO SCH ×2 (09:53→17:18)
[2017-12-20] MEDS: FAMOTIDINE 20 MG TABLET PO SCH ×2 (09:53→21:25)
[2017-12-20] MEDS: PRENATAL VITAMIN W DHA CAPSULE PO SCH (09:53)
[2017-12-20] MEDS: DOCUSATE SODIUM 100 MG CAPSULE PO SCH ×2 (09:53→17:18)
--- NOTE | 2017-12-20 10:10 | PDOC PROGRESS REPORT ---
Subjective-OB Progress Note for:: 12/20/17 Subjective: PP Day#1, doing well, breast feeding, A+. rubella immune, c/o increased "afterbirth pains" Physical Exam (OB) Vital Signs: Temp Pulse Resp BP Pulse Ox 97.9 F 76 17 120/72 100 12/20/17 08:00 12/20/17 08:00 12/20/17 08:00 12/20/17 08:00 12/20/17 08:00 Intake & Output 12/19/17 12/20/17 12/21/17 06:59 06:59 06:59 Intake Total 1000 1000 Balance 1000 1000 Weight 92.3 kg - General General Appearance: Appears well, Alert In distress: None - PIH/Pre-Eclampsia Clonus: Negative Headache: Absent Epigastric Pain: No Visual Changes: No - Lochia Lochia Amount: Scant < 10 ml Lochia Color: Rubra/Red - Abdomen Description: Tender, Soft Hernia Present: No Fundal Description: Firm Fundal Height: u/u - u/2 - Respiratory Respiratory Status: No respiratory distress - Abdominal Inspection: Normal Distension: No distension - Genitourinary Genitourinary Note: voiding - Extremities Lower extremities: Edema - 2+ edema - Neurological Cognition: Normal Orientation: AAOx4 - Psychological Associated symptoms: Normal affect, Normal mood - Skin Skin Temperature: Warm Skin Moisture: Dry Objective-Diagnostic Laboratory: 12/20/17 07:23 12/20/17 07:23 WBC 14.0 H RBC 3.83 Hgb 10.5 L Hct 32.4 L MCV 85 MCH 27.5 MCHC 32.5 RDW 17.9 H Plt Count 144 L Assessment and Plan(PN) - Assessment and Plan (1) Normal course Is this a current diagnosis for this admission?: Yes (2) Polyhydramnios affecting Is this a current diagnosis for this admission?: Yes (3) Unstable lie of fetus, antepartum Qualifiers: Fetus number: single or unspecified fetus Qualified Code(s): O32.0XX0 - Maternal care for unstable lie, not applicable or unspecified Is this a current diagnosis for this admission?: Yes (4) Vaginal delivery Is this a current diagnosis for this admission?: Yes Plan:: encouraged Tylenol and Motrin for cramping - Time Spent with Patient Time with patient: Less than 15 minutes - Disposition Anticipated Discharge: Home Within: within 24 hours
[2017-12-21] MEDS: ACETAMINOPHEN WITH CODEINE #3 TABLET PO PRN ×3 (01:32→09:37)
[2017-12-21] MEDS: IBUPROFEN 800 MG TABLET PO SCH (05:37)
[2017-12-21 07:55] VITALS: BP 120/72
[2017-12-21] MEDS: FERROUS SULFATE 325 MG TABLET PO SCH (09:37)
[2017-12-21] MEDS: DOCUSATE SODIUM 100 MG CAPSULE PO SCH (09:37)
[2017-12-21] MEDS: SENNOSIDES/DOCUSATE 8.6-50 MG 1 EACH TABLET PO SCH (09:37)
[2017-12-21] MEDS: PRENATAL VITAMIN W DHA CAPSULE PO SCH (09:37)
[2017-12-21] MEDS: FAMOTIDINE 20 MG TABLET PO SCH (09:37)
--- NOTE | 2017-12-21 10:00 | PDOC PROGRESS REPORT ---
Subjective-OB Progress Note for:: 12/21/17 Subjective: Doing well, no c/o, ready to go home, continues to have after pains, bleeding under control Physical Exam (OB) Vital Signs: Temp Pulse Resp BP Pulse Ox 97.8 F 84 18 120/72 100 12/21/17 08:05 12/21/17 08:05 12/21/17 08:05 12/21/17 08:05 12/21/17 08:05 Intake & Output 12/20/17 12/21/17 12/22/17 06:59 06:59 06:59 Intake Total 1000 480 Balance 1000 480 - PIH/Pre-Eclampsia DTR's: 2 + Clonus: Negative Headache: Absent Epigastric Pain: No Visual Changes: No - Lochia Lochia Amount: Small 10-25 ml Lochia Color: Rubra/Red - Abdomen Description: Tender, Soft Hernia Present: No Fundal Description: Firm, Midline Fundal Height: u/u - u/2 Objective-Diagnostic Laboratory: 12/20/17 07:23 Assessment and Plan(PN) - Assessment and Plan (1) Vaginal delivery Is this a current diagnosis for this admission?: Yes (2) Polyhydramnios affecting Is this a current diagnosis for this admission?: Yes (3) Unstable lie of fetus, antepartum Qualifiers: Fetus number: single or unspecified fetus Qualified Code(s): O32.0XX0 - Maternal care for unstable lie, not applicable or unspecified Is this a current diagnosis for this admission?: Yes - Time Spent with Patient Time with patient: Less than 15 minutes Medications reviewed and adjusted accordingly: Yes - Disposition Anticipated Discharge: Home Within: within 24 hours
--- NOTE | 2017-12-21 10:05 | PDOC DISCHARGE SUMMARY ---
Final Diagnosis Discharge Date: 12/21/17 - Final Diagnosis (1) Vaginal delivery Is this a current diagnosis for this admission?: Yes (2) Polyhydramnios affecting Is this a current diagnosis for this admission?: Yes (3) Unstable lie of fetus, antepartum Is this a current diagnosis for this admission?: Yes Discharge Data - Discharge Medication Prescriptions: Acetaminophen with Codeine [Tylenol #3 Tablet] 1 each PO Q4HP PRN #7 tablet PRN Reason: Ibuprofen [Motrin 800 mg Tablet] 800 mg PO Q8 #30 tablet Home Medications: Prenat 115/Iron Fum/Folic/Dss [ 19 Tablet] 1 each PO DAILY #30 tablet Acetaminophen with Codeine [Tylenol #3 Tablet] 1 each PO Q4HP PRN #7 tablet 01/26 Ibuprofen [Motrin 800 mg Tablet] 800 mg PO Q8 #30 tablet 12/21/17 Gestational Age: 39.3 Reason(s) for Admission: Induction of Labor Admission Note: polyhydramnios Procedures: NST, Ultrasound Intrapartum Procedure(s): Spontaneous Vaginal Delivery - [place] Data Baby 1 Female at 1 minute: 8 at 5 minutes: 9 Weight: 3.629 kg Home with Mother: Yes Complications: No - Diagnosis Test Laboratory: Temp Pulse Resp BP Pulse Ox 97.8 F 84 18 120/72 100 12/21/17 08:05 12/21/17 08:05 12/21/17 08:05 12/21/17 08:05 12/21/17 08:05 12/18/17 12/18/17 12/20/17 07:00 07:53 07:23 RBC 4.30 3.83 Hgb 12.3 10.5 L Hct 35.7 L 32.4 L Urine Opiates Screen NEGATIVE - Discharge information/Instructions Discharge Activity: Activity As Tolerated, Balance Activity w/Rest, No Lifting Over 10 Pounds, No Lifting/Push/Pulling, No tub bath Discharge Diet: As Tolerated, Regular Disposition: HOME, SELF-CARE Follow up with: [facility] in: 4, Weeks
== END 2017-12-21 12:47 | disposition home or self-care (01) | DRG 807 ==
LOC: LR 06:59 → 2S 12-19 16:00
PROVIDERS: ADMIT Obstetrics & Gynecology Gynecology; ATTEND Obstetrics & Gynecology Gynecology
PROC: 4A1HXCZ Monitoring of Products of Conception, Cardiac Rate, External Approach (ICD-10-PCS; 2017-12-18)
PROC: 10E0XZZ Delivery of Products of Conception, External Approach (ICD-10-PCS; principal; 2017-12-19)
PROC: 3E033VJ Introduction of Other Hormone into Peripheral Vein, Percutaneous Approach (ICD-10-PCS; 2017-12-19)
PROC: 10907ZC Drainage of Amniotic Fluid, Therapeutic from Products of Conception, Via Natural or Artificial Opening (ICD-10-PCS; 2017-12-19)
DX: O32.0XX0 Maternal care for unstable lie, not applicable or unspecified (principal); Z37.0 Single live birth; O40.3XX0 Polyhydramnios, third trimester, not applicable or unspecified; O24.429 Gestational diabetes mellitus in childbirth, unspecified control; Z28.82 Immunization not carried out because of caregiver refusal; Z23 Encounter for immunization; Z3A.39 39 weeks gestation of pregnancy
CPT/HCPCS: 36415; 80307; 81005; 85025; 85027; 86592; 86850; 86900; 86901; 90715; C1726; J2300; J2370; J2590; J3010; J3490

== ENCOUNTER 2018-02-11 08:39 | Day surgery (SDC) | payer MEDICAID ==
[~2018-02-11 08:39] MED LIST: GLYCOPYRROLATE 1 MG/5 ML SYRINGE ONE; SUCCINYLCHOLINE CHLORIDE INJ 200 MG/10 ML VIAL ONE
[2018-02-11 09:11] LABS: APPEARANCE,URINE CLOUDY; BILIRUBIN,URINE NEGATIVE (NEGATIVE); COLOR,URINE YELLOW; GLUCOSE, URINE NEGATIVE (NEGATIVE); KETONES,URINE NEGATIVE (NEGATIVE); LEUKOCYTE ESTERASE,URINE SMALL (NEGATIVE); NITRITE,URINE NEGATIVE (NEGATIVE); PROTEIN,URINE 30 mg/dL (NEGATIVE); URINE SPECIFIC GRAVITY 1.024; UROBILINOGEN,URINE NEGATIVE mg/dL (<2.0)
[2018-02-11 09:52] LABS: HEMOGLOBIN 13.2 g/dL (12.0-15.5); MEAN CORPUSCULAR HEMOGLOBIN 27.7 pg (27.0-33.4); MEAN CORPUSCULAR HGB CONC 33.8 g/dL (32.0-36.0); MEAN CORPUSCULAR VOLUME 82 fl (80-97); PLATELET COUNT 175 10^3/uL (150-450); RED BLOOD COUNT 4.75 10^6/uL (3.72-5.28); RED CELL DISTRIBUTION WIDTH 17.9 % (11.5-14.0); WHITE BLOOD COUNT 6.5 10^3/uL (4.0-10.5)
[2018-02-11] MEDS ORDERED: MIDAZOLAM 2 MG/2 ML INJ ONE (12:05)
[2018-02-11] MEDS ORDERED: ACETAMINOPHEN 1,000 MG/100 ML RTUPB IV ONE (12:05)
[2018-02-11] MEDS ORDERED: HYDROMORPHONE HCL INJ/PF 2 MG/ML AMPULE ONE (12:05)
[2018-02-11] MEDS ORDERED: PROPOFOL INJ 200 MG/20 ML VIAL IV ONE (12:05)
[2018-02-11] MEDS ORDERED: ONDANSETRON HCL INJ/PF 4 MG/2 ML SDV ONE (12:22)
[2018-02-11] MEDS ORDERED: FENTANYL CITRATE INJ/PF 100 MCG/2 ML AMPUL IV PRN ×3 (12:46)
[2018-02-11] MEDS ORDERED: PROMETHAZINE HCL INJ 25 MG/1 ML VIAL IV PRN (12:46)
[2018-02-11] MEDS ORDERED: MEPERIDINE HCL/PF INJ 25 MG/1 ML DISP.SYRIN IV PRN (12:46)
[2018-02-11] MEDS ORDERED: MORPHINE SULFATE 10 MG/ML INJ IV PRN (12:46)
[2018-02-11] MEDS ORDERED: DIPHENHYDRAMINE HCL 50 MG/ML VIAL IV PRN (12:46)
[2018-02-11] MEDS ORDERED: ONDANSETRON HCL INJ/PF 4 MG/2 ML SDV IV PRN (12:46)
[2018-02-11] MEDS ORDERED: OXYCODONE-ACETAMINOPHEN 5-325 MG TABLET ONE (13:51)
[2018-02-11] MEDS ORDERED: OXYCODONE-ACETAMINOPHEN 5-325 MG TABLET PO PRN ×2 (14:09)
[2018-02-11] MEDS ORDERED: IBUPROFEN 800 MG TABLET PO PRN (14:09)
[2018-02-11] MEDS ORDERED: RINGERS SOLUTION,LACTATED 1,000 ML IV PRN (14:10)
[2018-02-11] MEDS ORDERED: MORPHINE SULFATE 10 MG/ML INJ IM PRN (14:11)
[2018-02-11 15:09] VITALS: BP 137/85
--- NOTE | 2018-02-11 17:31 | OPERATIVE REPORT E ---
Operative Report NAME: ROBERTO CANTU : 1980 AGE: 37Y DATE OF SURGERY: 02/11/2018 ROOM: PREOPERATIVE DIAGNOSIS: Undesired fertility. POSTOPERATIVE DIAGNOSIS: Undesired fertility. OPERATION: Laparoscopic tubal cauterization. SURGEON: TIFFANIE CHINO M.D. ANESTHESIA: Carlos Alberto Underwood M.D. with general. FINDINGS: Normal uterus, tubes, and ovaries. ESTIMATED BLOOD LOSS: 10 mL. SPECIMENS REMOVED: None. PROCEDURE IN DETAIL: The patient was taken to the operating room, prepared and draped in the normal sterile fashion, in the dorsal lithotomy position and under sterile conditions in and out catheter was performed of approximately 250 mL of clear urine. A sterile speculum was placed in the vagina. The cervix was grasped on the anterior aspect and prepped with Betadine. The Hulka clamp was then placed through the cervix for uterine manipulation without difficulty. The tenaculum and the speculum were then removed. Gloves were changed and attention was turned to the upper portion of the case were an umbilical skin incision was made to accommodate a 5 mm port. A Veress needle was introduced through the incision and the abdomen was inflated with approximately 2 liters of CO2 gas and confirmation of peritoneal cavity placement was made with free flow sterile water through the Veress needle ensuring pressure of less than 10 mmHg. The abdomen was inflated to 15 mmHg. The Veress needle was removed and the 5 mm port was placed. The camera was introduced and then the patient was placed in a steep Trendelenburg. Under direct visualization another 5 mm port was placed in the left lower quadrant. The blunt probe was introduced through this port and the bowel was swept away. Good visualization of the fallopian tubes was obtained. The blunt probe was removed and the Kleppinger cautery tool was introduced. Beginning with the left fallopian tube I cauterized approximately 3.5 cm on the left, this was repeated on the right for complete tubal occlusion and a picture was taken. The instrument was removed and the lower trocar was removed under direct visualization with good hemostasis. The camera was removed and the abdomen was deflated through the umbilical port and the patient was taken out of Trendelenburg. The skin was closed at both sites using 4-0 Vicryl. The patient tolerated the procedure well. Sponge, lap, and needle counts were correct x2 and the patient was taken to recovery in stable condition. DICTATING PHYSICIAN: TIFFANIE CHINO M.D. [id number] PHY#: [id number] ID: [id number] JOB#: [id number] ACCT: [id number] cc:TIFFANIE CHINO M.D. >
== END 2018-02-11 15:00 | disposition home or self-care (01) ==
LOC: OROUT 08:39
PROVIDERS: ATTEND Obstetrics & Gynecology
DX: Z30.2 Encounter for sterilization (principal); E28.2 Polycystic ovarian syndrome; Z87.891 Personal history of nicotine dependence; Z79.899 Other long term (current) drug therapy
CPT/HCPCS: 36415; 85027; 81025; 81001; 58670; J2250; J1170; J0330; J2405; J2704; J0131; J3490; 851